=== PATIENT | female | born 1940 | race Caucasian/White ===

== ENCOUNTER 2016-11-24 11:27 | Emergency (ER) | payer MEDICARE ==
[2016-11-24] MEDS ORDERED: ONDANSETRON 4 MG VIAL ONE ×2 (14:06→15:02)
[2016-11-24] MEDS ORDERED: SODIUM CHLORIDE 0.9% 500 ML IV ONE (14:07)
[2016-11-24] MEDS ORDERED: DILAUDID 1 MG/ML AMP ONE (14:07)
[2016-11-24] MEDS ORDERED: ETOMIDATE 2 MG/ML 20 ML SYR IV ONE (14:14)
[2016-11-24] MEDS ORDERED: MORPHINE 2 MG/ML SYR ONE (15:03)
== END 2016-11-24 16:23 | disposition home or self-care (01) ==
LOC: ER 11:27
DX: S43.084A Other dislocation of right shoulder joint, initial encounter (principal); W11.XXXA Fall on and from ladder, initial encounter; Y92.009 Unspecified place in unspecified non-institutional (private) residence as the place of occurrence of the external cause; Z87.891 Personal history of nicotine dependence
CPT/HCPCS: 23650; 73030; 96361; 96374; 96375; 96376; 99285; J1170; J2405; J7040